=== PATIENT | female | born 1970 | race Two or more races ===

== ENCOUNTER 2017-05-31 06:08 | Day surgery (SDC) | payer OTHER ==
[2017-05-31] MEDS ORDERED: Propofol 10 mg/ml Inj (20 ML) ONE (07:36)
[2017-05-31] MEDS ORDERED: Succinylcholine Chloride 20 mg/ml Syr (5 ml) IV ONE (07:36)
[2017-05-31] MEDS ORDERED: Midazolam 2 MG/2 ML VIAL ONE (07:36)
[2017-05-31] MEDS ORDERED: Rocuronium 10 mg/ml (5 ml) ONE (07:36)
[2017-05-31] MEDS ORDERED: Lactated Ringer's 1,000 ML IV ONE ×4 (07:54→09:47)
[2017-05-31] MEDS: Bupivacaine-Epi 0.25%-1:200,000 PF Inj ONE ×2 (07:54→08:39)
[2017-05-31] MEDS: ceFAZolin IV 2 gm in Dextrose 1 GM/50 ML BAG IVPB ONE ×2 (07:54→08:15)
[2017-05-31] MEDS ORDERED: ePHEDrine 50 mg/ml Inj ONE (08:45)
[2017-05-31] MEDS ORDERED: Neostigmine Methylsulfate 3mg/3ml Syringe IV ONE (09:55)
[2017-05-31] MEDS ORDERED: Morphine 4 MG/ML VIAL IV PRN (10:17)
--- NOTE | 2017-05-31 10:19 | PCM.SURG1 ---
Surgeon's Initial Post Op Note - Surgeon's Notes Surgeon: cheng davenport md Cytotechnologist/Cytology Supervisor: benny SIERRA Type of Anesthesia: General Endo, Local Pre-Operative Diagnosis: Advanced uterine prolapse stage III. chronic pelvic pain. Urinary urgency frequency. Cystocele stage IV Operative Findings: advanced uterine prolapse stage III. Cystocele stage IV. bowel adhesions. S/P BTL years prior. normal ureters. bladder hyperemic Post-Operative Diagnosis: Advanced uterine prolapse stage III. chronic pelvic pain. Urinary urgency frequency. Cystocele stage IV Operation Performed: Total robotic hysterectomy bilateral salpingectomy. Lysis of adhessions. colpopexy / uterosacroligament suspenssion. Diagnostic cystosocpy Specimen/Specimens Removed: uterus cervix and tubes bilateraly Estimated Blood Loss: EBL {In ML}: 10 Blood Products Given: N/A Drains Used: No Drains Post-Op Condition: Good Date of Surgery/Procedure: 05/31/17 Time of Surgery/Procedure: 10:20
--- NOTE | 2017-05-31 10:24 | PCM.OP ---
Operative Report - Operative Report Date of Surgery/Procedure: 05/31/17 Time of Surgery/Procedure: 10:21 Surgeon: Mauricio Rivera MD Roving Department End Finder: Aditi SIERRA Anesthesia/Sedation: General with ET tube Pre-Operative Diagnosis: Advanced uterine prolapse stage III. chronic pelvic pain. Urinary urgency frequency. Cystocele stage IV Post-Operative Diagnosis: Advanced uterine prolapse stage III. chronic pelvic pain. Urinary urgency frequency. Cystocele stage IV Indication for Surgery: worsening symptomatic uterine prolpase, bladdre prolapse with chronic pain and urinary incontinence Operative Findings: Advanced uterine prolapse stage III. chronic pelvic pain. Urinary urgency frequency. Cystocele stage IV. Adhesions involving bladder and anterior abd wall Procedure/Operation Description: Procedures performed: 1. total robotic hysterectomy bilateral salpingectomy. 2. colpopexy/uterosacral ligament suspension. 3. diagnostic cystoscopy. . Detailed Operative Report. This is a 46 years old female with symptomatic uterine prolapse, associated cystocele and rectocele, chronic pelvic pain, and urinary urgency and frequency. The patient completed an extensive preoperative workup, which included an ultrasound, as well as a pap smear, chemistry and hematology studies. The patient reported these symptoms and problems as debilitating, and adversely affecting her quality of life. Following a period of failed conservative management, and patient decision was made to proceed with a more invasive approach to address the above noted problems. A decision was finally made to proceed with a total robotic assisted hysterectomy, bilateral salpingectomy, and vaginal vault suspension. A detailed description of this robotic procedure was given to the patient, all risks and benefits of the surgical modality was reviewed, printed material was also given to the patient regarding robotic surgery. The patient fully understood all the risks and benefits and elected to proceed with this proposed procedure. final decision was made to proceed with colpopexyhowever avoiding any use of permanent mesh or graft material at this time. Decision made to proceed with uterosacral ligament suspension to try and correct her apical prolapse. After proper consent was obtained from the patient was taken to the operating room, proper patient identification was completed. She was placed in dorsal lithotomy position; general anesthesia was induced without difficulty. Her legs were placed in adjustable Lex stirrups. Careful attention was placed not to over- flex or over-rotate the lower extremities at the hip or the knee joints. She was prepped and draped appropriately for robotic assisted hysterectomy. Lane catheter was inserted under sterile conditions. A weighted speculum was placed in the vagina, anterior lip of cervix was grasped with a tenaculum, and a V- care uterine manipulator was inserted through the cervix and secured. The weighted speculum and tenaculum were removed from the patient's vagina and attention was turned to the patient's abdomen. Local anesthetic solutions of 0.25% Marcaine with epinephrine were utilized to infiltrate the skin prior to all abdominal skin incisions. A total of 15 mL of 0.25% Marcaine was utilized throughout the procedure. While tenting the abdominal wall, a Veres needle was inserted through the umbilicus and a pneumoperitoneum was obtained. Approximately 1 cm above the umbilicus in the midline, a 1 cm incision was made with a scalpel and a trocar and sleeve were introduced. A robotic camera was inserted and an initial survey of the patient's abdomen revealed a normal size uterus, boggy in appearance. Both ovaries appeared normal with normal appearing fallopian tubes. in addition, patient had adhesions between the anterior uterine wall and the bladder likely from prior delivery. The patient was placed in Trendelenburg position ready for a da Bernardino robotic system to be docked. 2 Operativerobotic ports were utilized for this procedure plus the camera port. The first robotic port was placed on the patient's right side approximately 5 cm superior to the right superior iliac crest, the second robotic port was placed 5 cm superior to the left superior iliac crest. All ports were approx. aligned along the same horizontal line on the abdomen in an arch like fashion. An radiology practitioner assistant port was placed tthe suprapubic region slightly left lateral of the midline. For the radiology practitioner assistant and camera ports we utilized the Versa step trocar system. All trocars were inserted under direct visualization. The placement of the trocars was all accomplished under careful and meticulous placement under direct visualization. Following the placement of all trocars, the da Bernardino robotic system was docked in a parallel method without difficulty. The following instruments were utilized for this procedure : the bipolar cautery device, a monopolar marbella and finally a ProGrasp. Meticulous and careful lysis of adhesions was ccompleted bringing the anterior uterine wall from the bladder. This was accomplished utilizing the monopolar marbella and bipolar device. Prior to the start of the hysterectomy, both ureters and their courses were visualized, peristalsis bilaterally. On the patient's right side, the utero-ovarian and the round ligaments were identified cauterized and transected, the broad ligament was divided all the way down to the utero cervical junction bladder flap was then created by transecting the visceroperitoneum over the bladder reflection. In a similar fashion, the left round ligament, utero-ovarian ligament and broad ligament were cauterized sealed and transected, taken down to the level of the cervical uterine junction. Uterine vessels on both sides were sealed and transected. The Uterosacral ligaments were sealed and transected. The monopolar marbella and PK were utilized to complete the colpotomy incision around the care vaginal ring. Excellent hemostasis was noted. The uterus, cervix and fallopian tubes were delivered transvaginal through the colpotomy incision and sent to pathology for permanent analysis. The colpotomy incision was closed with 2-0 v LOC in a continuous fashion with excellent hemostasis. The vaginal vault suspension was achieved by suspending the vaginal cuff to the base of the uterosacral ligaments bilaterally. For uterosacral ligament suspension portion of the procedure, the ureters were once again identified to avoid possible compromise or kinking while suspending the vaginal vault. A 2-0 permanent suture material ( Kinsman-Isreal) was utilized to suspend the uterosacral ligaments from the base to the vaginal vault cuff incision including both anterior and posterior aspect of the colpotomy incision. Utilizing a 3-0 Monocryl suture, the peritoneum over the colpotomy incision and uterosacral ligaments was re-approximated in a continuous fashion. The abdomen was throughout irrigated and cleared of all clots and debris. FloSeal as well as Interceed was applied to the incision sites. Excellent hemostasis was again noted. All robotic and laparoscopic instruments removed under direct visualization. The robotic arms were undocked , and a da Bernardino robotic system was wheeled away from the patient's bedside. Both radiology practitioner assistant and camera ports were closed at the fascial layer utilizing a 2- 0 Vicryl suture material in interrupted fashion. Pneumoperitoneum was reduced and all skin incisions were closed utilizing 4-0 Monocryl in a subcutaneous fashion. Dermabond was applied to all incisions. Due to the complexity of this hysterectomy and colpopexy, a diagnostic cystoscopy was completed. The Lane catheter was removed; the bladder was distended with approximately 350 cc of normal saline. A 30 cystoscope was introduced and a survey of the bladder anatomy was completed. The base, and the dome of the bladder appeared normal, both ureteral orifices appeared normal and were efluxing urine freely. The urethra appeared normal. A Lane catheter was reinserted. Vaginal packing was inserted to be removed the next morning. Patient emerged from general anesthesia without difficulty, and was taken to recovery room in stable condition. Prior to incision the patient received antibiotics, prior to closure sponge lap and needle counts were correct x2. Estimated Blood Loss: 10 Blood Replaced: none Sponge/Instrument Count: correct count times 2 Drains: none Complications: none Specimen: uterus, cervix and tubes Discharge & Condition: discharge when criteria met. follow up with surgeon in 2 weeks. post op precuations and instructions given
[2017-05-31] MEDS ORDERED: ceFAZolin IV 1 gm in Dextrose 1 GM/50 ML BAG IVPB SCH (10:30)
[2017-05-31] MEDS ORDERED: Sodium Chloride 0.9% 1,000 ML IV SCH (10:30)
[2017-05-31] MEDS ORDERED: HYDROmorphone 0.5 mg/0.5 ml ISec IVP PRN (10:31)
[2017-05-31] MEDS: Oxycodone/Acetaminophen 5/325 mg Tab PO PRN (22:53)
--- NOTE | 2017-06-01 07:34 | CP.PCM.PN ---
Subjective - Date & Time of Evaluation Date of Evaluation: 06/01/17 Time of Evaluation: 07:32 - Subjective Subjective: Patient states she is feeling good today. She is passing gas, she was able to tolerate yogurt. She says she has little pain and isn't using pain medication. She was able to get up to go to bathroom this morning. Objective - Vital Signs/Intake and Output Vital Signs (last 24 hours): Temp Pulse Resp BP Pulse Ox 98.8 F 96 H 20 109/63 97 06/01/17 00:00 06/01/17 00:00 06/01/17 00:00 06/01/17 00:00 06/01/17 00:00 - Medications Medications: Current Medications Docusate Sodium (Colace) 100 mg PO BID [facility] Last Admin: 05/31/17 17:18 Dose: Not Given Sodium Chloride (Sodium Chloride 0.9%) 1,000 mls @ 80 mls/hr IV .[id number] [facility] Last Admin: 05/31/17 16:49 Dose: 80 mls/hr Cefazolin Sodium/Dextrose (Ancef Iv 1 Gm Duplex) 1 gm in 50 mls @ 100 mls/hr IVPB Q8H [facility] Stop: 06/01/17 08:44 Last Admin: 06/01/17 00:00 Dose: 100 mls/hr Morphine Sulfate (Morphine) 4 mg IV Q4H PRN PRN Reason: Pain, moderate (4-7) Ondansetron HCl (Zofran Inj) 4 mg IVP Q6H PRN PRN Reason: Nausea/Vomiting Oxycodone/Acetaminophen (Percocet 5/325 Mg Tab) 2 tab PO Q4 PRN PRN Reason: Pain, Mild (1-3) Stop: 06/03/17 10:18 Last Admin: 05/31/17 22:53 Dose: 2 tab - GI/Abdominal Exam GI & Abdominal Exam: Soft Additional comments: Incision sites dry, intact, no erythema, abd soft +BS no distension, no active vaginal bleeding Assessment and Plan (1) Uterine prolapse Assessment & Plan: POD# 1 s/p total robotic hysterectomy bilateral salpingectomy, lysis of adhesiona, colpopexy/uterosacroligament suspension, diagnositic cystoscopy -d/c home today -rx pain medication -call office for f/u in 7-[address] Rivera -keep incisions open to air -encourage out of bed -continue IS -d/w Dr. Rivera, agrees with above Status: Chronic (2) Chronic pelvic pain in female Status: Chronic (3) Cystocele with uterine prolapse Status: Chronic (4) Urinary frequency Status: Chronic
[2017-06-01 08:22] LABS: HEMATOCRIT 33.2 % (34.0-47.0); MEAN CELL VOLUME 82.9 fL (81.0-99.0); MEAN CORPUSCULAR HEMOGLOBIN 27.6 pg (27.0-31.0); MEAN CORPUSCULAR HGB CONC 33.3 g/dL (33.0-37.0); MEAN PLATELET VOLUME 7.2 fL (7.2-11.7); WHITE BLOOD COUNT 5.7 K/uL (4.8-10.8)
[2017-06-01 08:33] LABS: CHLORIDE 105 mmol/L (98-107); SODIUM 139 mmol/L (132-148)
[2017-06-01 08:36] LABS: BLOOD UREA NITROGEN 9 mg/dL (7-17); CALCIUM 8.3 mg/dl (8.6-10.4); CARBON DIOXIDE 27 mmol/L (22-30); GFR AFRICAN-AMERICAN > 60; GLUCOSE,RANDOM 90 mg/dL (65-105)
[2017-06-01] MEDS: ceFAZolin IV 1 gm in Dextrose 1 GM/50 ML BAG IVPB SCH ×2 (08:39)
[2017-06-01 08:52] VITALS: BP 121/76; PULSE 79; RESP 18; TEMP 98.6; O2SAT 99
[2017-06-01] MEDS: Oxycodone/Acetaminophen 5/325 mg Tab PO PRN (10:25)
== END 2017-06-01 13:00 | disposition home or self-care (01) ==
LOC: C.SDS 06:08 → C.4M 10:20 → C.SDS 06-01 13:00
PROVIDERS: ATTEND Obstetrics & Gynecology
DX: N81.3 Complete uterovaginal prolapse (principal); N95.2 Postmenopausal atrophic vaginitis; N81.6 Rectocele; R10.2 Pelvic and perineal pain; G89.29 Other chronic pain; D25.9 Leiomyoma of uterus, unspecified
CPT/HCPCS: 36415; 52000; 57160; 57283; 58552; 80048; 85027; 86850; 86900; 88309; C2615; J0690; J1100; J1170; J1885; J2001; J2250; J2405; J2704; J2710; J2765; J3010; J7040; J7120